=== PATIENT | male | born 1985 | race Hispanic/Latino ===

== ENCOUNTER → 2023-07-14 07:36 | Outpatient (REF) | payer OTHER, SELFPAY ==
[2023-07-14 08:44] LABS: ALT (SGPT) 42 U/L (0-50); AST (SGOT) 40 U/L (17-59); Albumin 4.5 g/dl (3.5-5.0); Alkaline Phosphatase 122 U/L (38-126); Blood Urea Nitrogen 12 mg/dl (9-20); Calcium 9.6 mg/dl (8.4-10.2); Carbon Dioxide 29 mmol/L (22-30); Chloride 106 mmol/L (98-107); GGTP 138 U/L (15-73); Glucose 99 mg/dl (70-99); HDL Cholesterol 73 mg/dl; LDL Cholesterol, Calculated 189 mg/dl; Sodium 137 mmol/L (135-145); Total Bilirubin 0.8 mg/dl (0.2-1.3); Total Cholesterol 277 mg/dl (50-199); Total Protein 7.4 g/dl (6.3-8.2); Triglyceride 79 mg/dl (10-149); Very Low Density Lipoprotein 15 mg/dl (0-30); eGFR > 60.00
[2023-07-14 08:58] LABS: Vitamin D, 25-OH*** 26.5 ng/mL (30-80)
== END ==
LOC: REG 07:36
PROVIDERS: ATTENDING PHYSICIAN Nurse Practitioner Acute Care
DX: E78.2 Mixed hyperlipidemia (principal)
CPT/HCPCS: 36415; 80053; 80061; 82306; 82977

== ENCOUNTER → 2023-07-19 09:12 | Outpatient (REF) | payer OTHER, SELFPAY ==
[2023-07-19 21:39] LABS: Hepatitis B Surface Antigen Negative (Negative)
[2023-07-19 21:56] LABS: Hepatitis C Antibody Negative (Negative)
== END ==
LOC: CLINIC 09:12
PROVIDERS: ATTENDING PHYSICIAN Nurse Practitioner Acute Care
DX: R74.8 Abnormal levels of other serum enzymes (principal)
CPT/HCPCS: 36415; 86803; 87340

== ENCOUNTER → 2023-08-09 13:24 | Outpatient (REF) | payer OTHER, SELFPAY | LOC: HWRAD 13:24 | PROVIDERS: ATTENDING PHYSICIAN Nurse Practitioner Acute Care | DX: R74.8 Abnormal levels of other serum enzymes (principal) | CPT/HCPCS: 76700 ==